=== PATIENT | male | born 1950 | race Caucasian/White ===

== ENCOUNTER → 2018-04-14 07:30 | Outpatient (CLI) | payer MEDICARE, OTHER, SELFPAY ==
[2018-04-14 08:26] LABS: Microalbumin:Creatinine Ratio 7.7 mg/g CRE (<30 mg/g CRE)
[2018-04-14 08:40] LABS: ALB/GLOB Ratio 1.1 RATIO (0.9-2.4); AST(SGOT) 33 U/L (15-37); Alanine Aminotransfer ALT/SGPT 57 U/L (16-61); Albumin, Serum 4.3 g/dL (3.2-5.0); Alkaline Phosphatase 72 U/L (45-117); Anion Gap 7 (5-15); BUN 27 mg/dL (7-18); BUN/Creat Ratio 23.1 RATIO (10-20); Calcium,Total 9.1 mg/dL (8.5-10.1); Chloride 108 mmol/L (98-107); Cholesterol 191 mg/dL (200); Creatinine, Serum 1.17 mg/dL (0.70-1.30); EST Glomerular Filtration Rate 66 mL/min (>60); Est Glom Filt Rate - Afr Amer 80 mL/min (>60); Globulin 3.8 g/dL (2.2-4.2); Glucose 96 mg/dL (74-106); High Density Lipoprotein 30 mg/dL; Potassium 3.9 mmol/L (3.5-5.1); Protein, Total 8.1 g/dL (6.4-8.2); Sodium Level 139 mmol/L (136-145); Thyroid Stim Hormone (TSH) 0.34 uIU/mL (0.358-3.74); Triglycerides 200 mg/dL; Very Low Density Lipoprotein 40 mg/dL (5-40)
[2018-04-16 09:29] LABS: Vitamin D,25 Hydroxy 32.6 ng/mL (29.95-100.01)
== END ==
PROVIDERS: Family Provider Family Medicine; PCP Family Medicine; Visit Provider Family Medicine
DX: I12.9 Hypertensive chronic kidney disease with stage 1 through stage 4 chronic kidney disease, or unspecified chronic kidney disease (principal); N18.2 Chronic kidney disease, stage 2 (mild); E78.00 Pure hypercholesterolemia, unspecified
CPT/HCPCS: 36415; 80053; 80061; 82043; 82306; 82570; 84443; 84550

== ENCOUNTER → 2018-09-07 12:01 | Outpatient (CLI) | payer MEDICARE, OTHER, SELFPAY ==
[2018-09-07 12:05] LABS: Bacteria 0 SEEN /hpf (None Seen); Mucous, Urine 0 SEEN /hpf (<or=2+); Red Blood Cells-Urine 0 SEEN /hpf (0-5); Squamous Epithelial Cells - UA 0 SEEN /hpf (0-5); White Blood Cells 0 SEEN /hpf (0-5)
[2018-09-07 13:31] LABS: Absolute Lymphocyte Count 2.02 X10^3/ul (0.83-4.51); Absolute Neutrophil Count 3.4 X10^3/uL (2.0-7.7); Basophil# 0.01 X10^3/uL; Basophil% 0.2 % (0-1); Eosinophils% 1.6 % (0-5); Hematocrit 43.2 % (40-54); Hemoglobin 14.5 g/dl (13.0-16.5); Lymphocyte # 2.02 X10^3/ul (4.0); Lymphocyte % 32.4 % (19-41); Mean Corp Hgb Conc 33.6 g/gl (32-36); Mean Corpuscular Hgb 30.4 pg (27.0-32.0); Mean Corpuscular Volume 90.6 fL (80-94); Mean Platelet Vol. 12.6 fl (6.2-12.0); Monocyte# 0.71 X10^3/uL; Monocyte% 11.4 % (0-10); Neutrophil # 3.39 X10^3/uL (2.7-7.7); Neutrophil % 54.4 % (47-70); Platelet Count 176 K/mm3 (150-450); RBC Distribution Width CV 12.6 % (11.6-14.6); RBC Distribution Width SD 41.5 fl (35.1-43.9); Red Blood Count 4.77 M/mm3 (4.6-6.2); White Blood Count 6.2 K/mm3 (4.4-11.0)
[2018-09-07 13:35] LABS: POSITIVE COUNT NO; POSITIVE DIFFERENTIAL NO; POSITIVE MORPHOLOGY NO
[2018-09-07 13:47] LABS: Color, Urine Yellow (Yellow); Glucose, Dipstick Normal (Normal); Ketone-Dipstick Negative (Negative); Leukocyte Esterase-Dipstick Negative /ul (Negative); Nitrite-Dipstick Negative (Negative); Occult Blood-Urine Negative /ul (Negative); Protein-Dipstick Negative (Negative); Specific Gravity, Urine 1.015 (1.002-1.030); Urine Bilirubin Dipstick Negative (Negative); Urine Clarity Clear (Clear); Urine Urobilinogen Normal (Normal); Urine pH 6.5 (5.0 - 8.0)
[2018-09-07 14:28] LABS: ALB/GLOB Ratio 1.4 RATIO (0.9-2.4); AST(SGOT) 38 U/L (15-37); Alanine Aminotransfer ALT/SGPT 62 U/L (16-61); Albumin, Serum 4.3 g/dL (3.2-5.0); Alkaline Phosphatase 77 U/L (45-117); Anion Gap 11 (5-15); BUN 23 mg/dL (7-18); CRP < 2.90 mg/L (0.0-3.0); Calcium,Total 9.4 mg/dL (8.5-10.1); Chloride 106 mmol/L (98-107); EST Glomerular Filtration Rate 79 mL/min (>60); Est Glom Filt Rate - Afr Amer 95 mL/min (>60); Glucose 84 mg/dL (74-106); Potassium 3.8 mmol/L (3.5-5.1); Protein, Total 7.3 g/dL (6.4-8.2); Sodium Level 142 mmol/L (136-145)
--- OUTSIDE RECORDS SUMMARY | 2018-10-24 06:43 | XMS RPT_ITS ---
:1950 Author Organization [facility] Care Team Providers Name Role Phone Grant Taylor Attending Unavailable Brandon, Grant Primary Care Unavailable Grant Taylor Attending Unavailable Grant Taylor Referring Unavailable Brandon Grant Primary Care Unavailable PROBLEMS PROBLEMS DATE TYPE CONDITION / CODE ATTENDING STATUS SOURCE 09/07/2018 Unknown R10.31 - Right Jayden Tayloric Active [facility] lower quadrant Community pain / Hospital R10.31(ICD-10) Repository 09/07/2018 Unknown M54.9 - Taylor, Grant Active [facility] Dorsalgia, Community unspecified / Hospital M54.9(ICD-10) Repository PROCEDURES PROCEDURES No Procedure Records FoundRESULTS RESULTS CBC W/DIFF, AUTOMATED Collected: 09/07/2018 Status: F Source: [place] 12:03 PM [facility] REPOSITORY TYPE CODE TESTS RESULT OUT OF RANGE REFERENCE UNITS LAB L100.1000 4.4-11.0 K/mm3 Normal WBC 6.2 LAB L100.1200 4.6-6.2 M/mm3 Normal RBC 4.77 LAB L100.1300 13.0-16.5 g/dl Normal HGB 14.5 LAB L100.1400 40-54 % Normal HCT 43.2 LAB L100.1500 80-94 fL Normal MCV 90.6 LAB L100.1600 27.0-32.0 pg Normal MCH 30.4 LAB L100.1700 32-36 g/gl Normal MCHC 33.6 LAB L100.1810 11.6-14.6 % Normal RDW CV 12.6 LAB L100.1820 35.1-43.9 fl Normal RDW SD 41.5 LAB L100.1900 150-450 K/mm3 Normal PLT 176 LAB L100.2000 6.2-12.0 fl High MPV 12.6 LAB L100.2100 47-70 % Normal NEUT% 54.4 LAB L100.2200 19-41 % Normal LY% 32.4 LAB L100.2300 0-10 % High MONO% 11.4 LAB L100.2400 0-5 % Normal EO% 1.6 LAB L100.2500 0-1 % Normal BASO% 0.2 LAB L100.2550 0.0-0.9 % Normal IM GRAN % 0.000 Result Comment: IG% - Immature Granulocytes (promyelocytes, myelocytes and metamyelocytes) > 1% indicates that a LEFT SHIFT is Present. LAB L100.2620 2.0-7.7 X10 3/uL Normal Absolute Neut 3.4 LAB L100.2720 0.83-4.51 X10 3/ul Normal Absolute Lymph 2.02 Performed By: #### L100.0100 #### [facility] [address] [place], [place], [address] URINALYSIS, COMPLETE Collected: 09/07/2018 Status: F Source: [place] 12:03 PM [facility] REPOSITORY Order Comment: How was Urine Obtained? CLEAN CATCH TYPE CODE TESTS RESULT OUT OF RANGE REFERENCE UNITS LAB L400.3000 Yellow COLOR Normal Yellow LAB L400.3050 Clear Normal CLARITY Clear LAB L400.3200 Normal mg/dl Normal GLUCOSE, UR Normal LAB L400.3300 Negative mg/dL Normal BILIRUBIN URINE Negative LAB L400.3400 Negative mg/dl Normal KETONE UR Negative LAB L400.3465 1.002-1.030 Normal SP.GR. DIPSTX 1.015 LAB L400.3550 5.0 - 8.0 pH UR Normal 6.5 LAB L400.3600 Negative mg/dl PROT Normal DIPSTX Negative LAB L400.3700 Normal mg/dl Normal UROBILI Normal LAB L400.3750 Negative Normal NITRITE UR Negative LAB L400.3780 Negative /ul Normal OCCULT BLOOD-UR Negative LAB L400.3800 Negative /ul LEUK Normal ESTERASE Negative LAB L400.4050 0-5 /hpf WBC 0 Normal SEEN LAB L400.4100 0-5 /hpf 0 Normal RBC-UA SEEN LAB L400.4150 0-5 /hpf SQUAM 0 Normal EPI SEEN LAB L400.4300 None Seen /hpf 0 Normal BACTERIA SEEN LAB L400.4350 <or=2+ /hpf 0 Normal MUCUS, URINE SEEN Performed By: #### L400.0001 #### [facility] [address] [place], [address] COMPREHENSIVE METABOLIC Collected: 09/07/2018 Status: F Source: [facility] 12:03 PM [facility] REPOSITORY TYPE CODE TESTS RESULT OUT OF RANGE REFERENCE UNITS LAB L501.0100 74-106 mg/dL Normal GLU 84 Result Comment: Please note revised GLUCOSE reference range effective 2017. LAB L501.1000 7-18 mg/dL High BUN 23 LAB L501.1100 0.70-1.30 mg/dL Normal CREAT,SERUM 1.00 Result Comment: The validity of the calculated GFR AND GFRAA in patients over 70 years has not been determined. Clinical correlation is essential. LAB L501.1110 >60 mL/min Normal EST GFR 79 Result Comment: Non- GFR Calc LAB L501.1115 >60 mL/min Normal EST GFR - AA 95 Result Comment: GFR Calc LAB L501.1300 10-20 RATIO High BUN/CRE 23.0 LAB L501.1500 6.4-8.2 g/dL T Normal PROT 7.3 LAB L501.1800 3.2-5.0 g/dL Normal ALB 4.3 LAB L501.1950 2.2-4.2 g/dL Normal GLOB 3.0 LAB L501.2000 0.9-2.4 RATIO Normal A/G 1.4 LAB L501.2200 8.5-10.1 mg/dL CA Normal 9.4 LAB L501.4100 15-37 U/L High AST 38 LAB L501.4305 45-117 U/L Normal ALK P 77 LAB L501.4405 16-61 U/L High ALT 62 LAB L501.4600 0.20-1.00 mg/dL T Normal BILI 0.60 LAB L501.5300 136-145 mmol/L NA Normal 142 LAB L501.5600 3.5-5.1 mmol/L K Normal 3.8 LAB L501.5900 98-107 mmol/L CL Normal 106 LAB L501.6100 21.0-32.0 mmol/L Normal CO2 25.0 LAB L501.6200 5-15 Normal GAP 11 Performed By: #### L500.4050, L501.6710 #### [facility] [address] [place], [address] CRP Collected: 09/07/2018 Status: F Source: [place] 12:03 PM [facility] REPOSITORY TYPE CODE TESTS RESULT OUT OF RANGE REFERENCE UNITS LAB L501.6710 0.0-3.0 mg/L Normal < 2.90 C-REACTIVE PROT Result Comment: C-Reactive Protein (CRP) provides useful information for the diagnosis, therapy and monitoring of inflammatory processes and associated diseases. For the evaluation of Relative Risk for Cardiovascular Disease, a High Sensitivity CRP (HSCRP) should be ordered. Performed By: #### L500.4050, L501.6710 #### [facility] [address] [place], [place], [address] MICROALB:CREAT Collected: 04/14/2018 Status: F Source: [place] RATIO,RANDOM UR 7:37 AM [facility] REPOSITORY TYPE CODE TESTS RESULT OUT OF RANGE REFERENCE UNITS LAB L501.1200 NO RANGE EST. mg/dL Normal UR CREAT 77.10 LAB L502.0500 NO RANGE EST. mg/L Normal 6.0 MICROALBUMIN ,UR LAB L502.0600 <30 mg/g CRE mg/g CRE Normal 7.7 MALB:CREAT Performed By: #### L502.0250 #### [facility] [address] [place], [address] COMPREHENSIVE METABOLIC Collected: 04/14/2018 Status: F Source: [place]IL 7:37 AM [facility] REPOSITORY TYPE CODE TESTS RESULT OUT OF RANGE REFERENCE UNITS LAB L501.0100 74-106 mg/dL Normal GLU 96 Result Comment: Please note revised GLUCOSE reference range effective 2017. LAB L501.1000 7-18 mg/dL High BUN 27 LAB L501.1100 0.70-1.30 mg/dL Normal CREAT,SERUM 1.17 Result Comment: The validity of the calculated GFR AND GFRAA in patients over 70 years has not been determined. Clinical correlation is essential. LAB L501.1110 >60 mL/min Normal EST GFR 66 Result Comment: Non- GFR Calc LAB L501.1115 >60 mL/min Normal EST GFR - AA 80 Result Comment: GFR Calc LAB L501.1300 10-20 RATIO High BUN/CRE 23.1 LAB L501.1500 6.4-8.2 g/dL T Normal PROT 8.1 LAB L501.1800 3.2-5.0 g/dL Normal ALB 4.3 LAB L501.1950 2.2-4.2 g/dL Normal GLOB 3.8 LAB L501.2000 0.9-2.4 RATIO Normal A/G 1.1 LAB L501.2200 8.5-10.1 mg/dL CA Normal 9.1 LAB L501.4100 15-37 U/L Normal AST 33 LAB L501.4305 45-117 U/L Normal ALK P 72 LAB L501.4405 16-61 U/L Normal ALT 57 LAB L501.4600 0.20-1.00 mg/dL T Normal BILI 0.70 LAB L501.5300 136-145 mmol/L NA Normal 139 LAB L501.5600 3.5-5.1 mmol/L K Normal 3.9 LAB L501.5900 98-107 mmol/L High CL 108 LAB L501.6100 21.0-32.0 mmol/L Normal CO2 24.0 LAB L501.6200 5-15 Normal GAP 7 Performed By: #### L500.4050, L500.4100, L501.1400, L501.9520 #### [facility] [address] [place], [place], [id number] LIPID PROFILE Collected: 04/14/2018 Status: F Source: [place] 7:37 AM [facility] REPOSITORY TYPE CODE TESTS RESULT OUT OF RANGE REFERENCE UNITS LAB L501.4900 200 mg/dL Normal CHOL 191 Result Comment: <200 mg/dL Desirable 200-240 mg/dL Borderline >240 mg/dL High Risk LAB L501.5000 mg/dL High TRIG 200 Result Comment: The drugs N-Acetylcysteine and Metamizole may falsely depress this assay. Serum Triglycerides Reference Interval Normal <150 mg/dL Borderline high 150 - 199 mg/dL High 200 - 499 mg/dL Very High > or = 500 mg/dL LAB L501.6400 mg/dL Low HDL 30 Result Comment: The drugs N-Acetylcysteine and Metamizole may falsely depress this assay. Reference Range HDL <40 mg/dL Low HDL Cholesterol HDL >or= 60 mg/dL High HDL Cholesterol LAB L501.6500 0-130 mg/dL Normal LDL 121 LAB L501.6600 5-40 mg/dL Normal VLDL 40 Performed By: #### L500.4050, L500.4100, L501.1400, L501.9520 #### [facility] [address] [place], [place], [id number] URIC ACID Collected: 04/14/2018 Status: F Source: [place] 7:37 AM [facility] REPOSITORY TYPE CODE TESTS RESULT OUT OF RANGE REFERENCE UNITS LAB L501.1400 3.5-7.2 mg/dL Normal URIC 7.0 Result Comment: The drugs N-Acetylcysteine and Metamizole may falsely depress this assay. Performed By: #### L500.4050, L500.4100, L501.1400, L501.9520 #### [facility] [address] [place], [place], [id number] THYROID STIM HORMONE Collected: 04/14/2018 Status: F Source: [place] (TSH) 7:37 AM [facility] REPOSITORY TYPE CODE TESTS RESULT OUT OF RANGE REFERENCE UNITS LAB L501.9520 0.358-3.74 uIU/mL Low TSH 0.34 Performed By: #### L500.4050, L500.4100, L501.1400, L501.9520 #### [facility] [address] [place], [address] VITAMIN D,25 HYDROXY Collected: 04/14/2018 Status: F Source: [place] 7:37 AM [facility] REPOSITORY TYPE CODE TESTS RESULT OUT OF RANGE REFERENCE UNITS LAB L506.1000 29.95-100.01 ng/mL Normal Vitamin D 32.6 25-OH Result Comment: Vitamin D 25(OH) Status Range Deficiency <20 ng/mL (50nmol/L) Insuffciency 20 - 30 ng/mL (50 - 75 nmol/L) Sufficiency 30 - 100 ng/mL (75 - 250 nmol/L) Toxicity >100 ng/mL (>250 nmol/L) Performed By: #### L506.1000 #### [facility] [place], [address] ALLERGIES ALLERGIES No Allergies Records FoundENCOUNTERS ENCOUNTERS ADMIT/DISCHARGE ACCOUNT ADMITTING ENCOUNTER LOCATION SOURCE NUMBER CLASS 09/07/2018 [id number] Ambulatory [facility] 4 [facility] ing:MFPLAB Repository 04/14/2018 [id number] Ambulatory [facility] 0 [facility] ing:LAB Repository PAYERS PAYERS ENCOUNTER GUARANTOR PAYER SUBSCRIBER SOURCE 09/07/2018 ROCKY A Primary ROCKY A [place] [id number] Insurance:MEDIC[facility] A [facility] [id number] Number: Repository [id number]: [phone] [id number] [phone] () Date:2018-09-07 09/07/2018 Secondary ROCKY A [place] [facility] Number: [id number] Hospital [id number] Repository Date:4987-02-82[address], [place] [address]ZN: 09/07/2018 Tertiary ROCKY A [place] Insurance[facility] [id number] [id number] Hospital Number: Repository [id number] Date:3524-26-47[address], [place] [address]JR: 09/07/2018 Tertiary NOT GIVENUNK [place] Insurance:SELF PAY Community [facility] Number: Effective Repository Date:2018-09-07 04/14/2018 Rocky A Primary Rocky A [place] [id number] Insurance:MEDICARE EikleberryDOB: [facility] PART A [facility] [id number] Number: Repository [id number]: [phone] [id number] [phone] () Date:2018-04-14 04/14/2018 Secondary Rocky A [place] [facility] Community Number: [id number] Hospital [id number] Repository Date:1420-46-76[address], [place] [address]QT: 04/14/2018 Tertiary Rocky A [place] [facility] [address]Uhegen [id number] Hospital Number: Repository [id number] Date:4949-14-03FW [address], [place] [address]EQ: 04/14/2018 Tertiary NOT GIVENUNK [place] Insurance:SELF PAY [facility] Number: Effective Repository Date:2018-04-14
== END ==
PROVIDERS: Family Provider Family Medicine; PCP Family Medicine; Visit Provider Family Medicine
DX: R10.31 Right lower quadrant pain (principal); M54.9 Dorsalgia, unspecified
CPT/HCPCS: 36415; 80053; 81001; 85025; 86140

== ENCOUNTER → 2018-11-20 06:45 | Outpatient (CLI) | payer MEDICARE, OTHER, SELFPAY ==
[2018-11-20 07:59] LABS: Microalbumin:Creatinine Ratio 96.5 mg/g CRE (<30 mg/g CRE)
[2018-11-20 08:23] LABS: ALB/GLOB Ratio 1.2 RATIO (0.9-2.4); AST(SGOT) 38 U/L (15-37); Alanine Aminotransfer ALT/SGPT 53 U/L (16-61); Albumin, Serum 4.2 g/dL (3.2-5.0); Alkaline Phosphatase 89 U/L (45-117); Anion Gap 7 (5-15); BUN 16 mg/dL (7-18); BUN/Creat Ratio 17.1 RATIO (10-20); Chloride 105 mmol/L (98-107); Cholesterol 157 mg/dL (200); Creatinine, Serum 0.94 mg/dL (0.70-1.30); EST Glomerular Filtration Rate 85 mL/min (>60); Est Glom Filt Rate - Afr Amer 103 mL/min (>60); Globulin 3.6 g/dL (2.2-4.2); Glucose 104 mg/dL (74-106); High Density Lipoprotein 32 mg/dL; Protein, Total 7.8 g/dL (6.4-8.2); Sodium Level 138 mmol/L (136-145); Thyroid Stim Hormone (TSH) 0.69 uIU/mL (0.358-3.74); Triglycerides 204 mg/dL; Very Low Density Lipoprotein 41 mg/dL (5-40)
[2018-11-20 11:21] LABS: Vitamin D,25 Hydroxy 28.8 ng/mL (29.95-100.01)
== END ==
PROVIDERS: Family Provider Family Medicine; PCP Family Medicine; Referring Provider Family Medicine; Visit Provider Family Medicine
DX: I12.9 Hypertensive chronic kidney disease with stage 1 through stage 4 chronic kidney disease, or unspecified chronic kidney disease (principal); N18.2 Chronic kidney disease, stage 2 (mild)
CPT/HCPCS: 36415; 80053; 80061; 82043; 82306; 82570; 84443

== ENCOUNTER 2019-03-15 15:11 | Emergency (ER) | payer MEDICARE, OTHER, SELFPAY ==
[2019-03-15 15:12] VITALS: BP 164/90; PULSE 95; RESP 16; TEMP 36.8; O2SAT 95; BMI 32.1
--- NOTE | 2019-03-15 16:30 | RAD_ITS ---
STUDY: X-RAY - RIGHT ELBOW REASON FOR EXAM: Male, 68 years old. Trauma TECHNIQUE: 3 view(s) of the elbow. COMPARISON: None. FINDINGS: Normal visualized humerus, radius and ulna. Normal radiocapitellar and ulnotrochlear articulations. Prominent olecranon spur is noted The soft tissue structures are unremarkable. RAD/Elbow min 3 Views IMPRESSION: Prominent olecranon spur. No evidence for acute fracture. Electronically Signed: Sean Babin MD at 16:49 EDT , Service support ,
--- NOTE | 2019-03-15 16:31 | ED.VISSUMM ---
- ER Visit Summary Date of Service: 03/15/19 Chief Complaint: Right arm pain and swelling History of Present Illness: The patient is a 68 M who presents for right arm pain and swelling after lifting a heavy object today. It occurred 3 hours prior to presentation. Patient was using his right arm to hold the lower end of a heavy object while he lifted. He felt a tearing movement in his elbow region and then had pain and weakness. He now has fullness in the upper arm and swelling in the proximal forearm and elbow region. He is right-handed. He does not have any pain if he holds still. Denies any other injuries. Patient called Dr. Jorden Major's office prior to coming to the emergency department and made an appointment for next Monday. He is not on any blood thinners. Physical Examination: Patient is well-nourished well-developed sitting in bed in no distress. Examination of the upper extremities shows asymmetry to the biceps region when flexed. Patient has fullness in the proximal right upper arm and lack of bicep musculature in the mid and distal arm. Patient has mild swelling in the inferior antecubital region and tenderness to palpation of this area. The hook test shows no palpable bicep tendon. Squeezing the bicep does not result in any supination or flexion of the forearm. Radial pulse 2+ and symmetric. Distal sensation and motor function intact. Test Results: [] Emergency Department Course and Treatment: Patient's presentation is consistent with a distal biceps rupture. Patient already has an appointment for orthopedic evaluation next Monday. He was discussed with Dr. Jorden Major who states this appointment is an appropriate timeframe for follow-up. Patient will be given a sling to wear for comfort. He will ice the bicep. An x-ray was performed to look for any possible bony avulsion. Patient discharged home well-appearing and in no distress. Treatment Plan: [] Disposition: [] Impression: Distal biceps tendon rupture This note was generated with [employer] dictation software. It may contain incorrect words, spelling, and punctuation that were not noted in review of the chart prior to signing ED Disposition - Plan for ED Patient: Disposition: Home or Assisted Living Instructions: Tendonitis Referrals: Grant Taylor MD [Primary Care Provider] - Jorden Major MD [STAFF PHYSICIAN] - Keep Ashli appointment Additional Instructions: YOU HAVE A TENDON RUPTURE OF YOUR LOWER RIGHT BICEP. Please use the sling as needed for comfort or to remind you not to do any heavy lifting with the hand. Do not lift more than 5 pounds with your right hand. Take the sling off several times a day to remove your arms through range of motion exercises. Ice your arm 3-4 times a day for 15 to 20 minutes each time. Use [id number] pain medication as needed. Follow-up with Dr. Major next Monday as previously scheduled. If you have any worsening of your condition or any new concerning symptoms, please return immediately to the emergency department for another evaluation.
== END 2019-03-15 17:15 | disposition home or self-care (01) ==
PROVIDERS: Emergency Provider Emergency Medicine; Family Provider Family Medicine; PCP Family Medicine
DX: S46.211A Strain of muscle, fascia and tendon of other parts of biceps, right arm, initial encounter (principal); X50.0XXA Overexertion from strenuous movement or load, initial encounter; Y93.89 Activity, other specified; Y92.89 Other specified places as the place of occurrence of the external cause; Y99.8 Other external cause status
CPT/HCPCS: 73080; 99283

== ENCOUNTER → 2019-06-01 | Outpatient (CLI) | payer MEDICARE, OTHER, SELFPAY ==
[2019-06-01 11:32] LABS: Absolute Lymphocyte Count 2.31 X10^3/uL (0.83-4.51); Absolute Neutrophil Count 2.8 X10^3/uL (2.0-7.7); Basophil# 0.03 X10^3/uL; Basophil% 0.5 % (0-1); Eosinophil# 0.09 X10^3/uL; Eosinophils% 1.5 % (0-5); Hematocrit 46.3 % (40-54); Hemoglobin 15.5 g/dL (13.0-16.5); Lymphocyte # 2.31 X10^3/ul (4.0); Lymphocyte % 38.6 % (19-41); Mean Corp Hgb Conc 33.5 g/dL (32-36); Mean Corpuscular Hgb 30.3 pg (27.0-32.0); Mean Corpuscular Volume 90.4 fL (80-94); Mean Platelet Vol. 12.6 fl (6.2-12.0); Monocyte# 0.72 X10^3/uL; NRBC Flagged by Analyzer 0 % (0-5); Neutrophil # 2.82 X10^3/uL (2.7-7.7); Neutrophil % 47.1 % (47-70); Platelet Count 181 K/mm3 (150-450); RBC Distribution Width CV 12.4 % (11.6-14.6); RBC Distribution Width SD 40.7 fl (35.1-43.9); Red Blood Count 5.12 M/mm3 (4.6-6.2)
[2019-06-01 11:50] LABS: Microalbumin,Random Urine 24.7 mg/L (NO RANGE EST.); Microalbumin:Creatinine Ratio 36.6 mg/g CRE (<30 mg/g CRE)
[2019-06-01 12:08] LABS: Anion Gap 10 (5-15); BUN 40 mg/dL (7-18); BUN/Creat Ratio 34.2 RATIO (10-20); Calcium,Total 9.2 mg/dL (8.5-10.1); Chloride 106 mmol/L (98-107); Creatinine, Serum 1.17 mg/dL (0.70-1.30); EST Glomerular Filtration Rate 66 mL/min (>60); Est Glom Filt Rate - Afr Amer 79 mL/min (>60); Glucose 95 mg/dL (74-106); Potassium 3.6 mmol/L (3.5-5.1); Sodium Level 140 mmol/L (136-145)
== END | disposition home or self-care (01) ==
LOC: LAB 10:36
PROVIDERS: Family Provider Family Medicine; PCP Family Medicine; Referring Provider Family Medicine; Visit Provider Family Medicine
DX: I12.9 Hypertensive chronic kidney disease with stage 1 through stage 4 chronic kidney disease, or unspecified chronic kidney disease (principal); N18.2 Chronic kidney disease, stage 2 (mild)
CPT/HCPCS: 36415; 80048; 82043; 82570; 85025

== ENCOUNTER → 2020-12-16 05:58 | Outpatient (CLI) | payer MEDICARE, OTHER, SELFPAY ==
[2020-12-16 06:43] LABS: Hematocrit 43.9 % (40-54); Hemoglobin 14.8 g/dL (13.0-16.5); Mean Corp Hgb Conc 33.7 g/dL (32-36); Mean Corpuscular Volume 91.8 fL (80-94); Mean Platelet Vol. 12.1 fl (6.2-12.0); Platelet Count 158 K/mm3 (150-450); RBC Distribution Width CV 12.3 % (11.6-14.6); RBC Distribution Width SD 41.8 fl (35.1-43.9); Red Blood Count 4.78 M/mm3 (4.6-6.2); White Blood Count 7.7 K/mm3 (4.4-11.0)
[2020-12-16 07:15] LABS: ALB/GLOB Ratio 1.2 RATIO (0.9-2.4); AST(SGOT) 39 U/L (15-37); Alanine Aminotransfer ALT/SGPT 79 U/L (16-61); Albumin, Serum 4.3 g/dL (3.2-5.0); Alkaline Phosphatase 85 U/L (45-117); Anion Gap 7 (5-15); BUN 32 mg/dL (7-18); BUN/Creat Ratio 28.3 RATIO (10-20); Calcium,Total 9.4 mg/dL (8.5-10.1); Chloride 106 mmol/L (98-107); Cholesterol 207 mg/dL (200); Creatinine, Serum 1.13 mg/dL (0.70-1.30); EST Glomerular Filtration Rate 68 mL/min (>60); Est Glom Filt Rate - Afr Amer 82 mL/min (>60); Globulin 3.6 g/dL (2.2-4.2); Glucose 106 mg/dL (74-106); High Density Lipoprotein 30 mg/dL; Potassium 3.9 mmol/L (3.5-5.1); Protein, Total 7.9 g/dL (6.4-8.2); Sodium Level 138 mmol/L (136-145); Triglycerides 280 mg/dL; Very Low Density Lipoprotein 56 mg/dL (5-40)
[2020-12-16 08:05] LABS: Hemoglobin A1c 5.4 % (3.8-5.6)
[2020-12-16 08:09] LABS: Microalbumin,Random Urine 47.7 mg/L (NO RANGE EST.); Microalbumin:Creatinine Ratio 53.7 mg/g CRE (<30 mg/g CRE)
== END ==
PROVIDERS: PCP Family Medicine; Referring Provider Family Medicine; Visit Provider Family Medicine
DX: I10 Essential (primary) hypertension (principal); E78.2 Mixed hyperlipidemia
CPT/HCPCS: 36415; 80053; 80061; 82043; 82570; 83036; 85027

== ENCOUNTER → 2020-12-24 09:42 | Outpatient (CLI) | payer MEDICARE, OTHER, SELFPAY ==
[2020-12-24 13:17] LABS: Hepatitis C Antibody Non-Reactive (Nonreactive)
== END ==
PROVIDERS: PCP Family Medicine; Referring Provider Family Medicine; Visit Provider Family Medicine
DX: R79.89 Other specified abnormal findings of blood chemistry (principal)
CPT/HCPCS: 36415; 86803

== ENCOUNTER 2021-12-14 16:44 | Outpatient (CLI) | payer MEDICARE, OTHER, SELFPAY ==
[2021-12-14 17:38] LABS: Absolute Lymphocyte Count 2.62 X10^3/uL (0.83-4.51); Absolute Neutrophil Count 3.9 X10^3/uL (2.0-7.7); Basophil# 0.03 X10^3/uL; Basophil% 0.4 % (0-1); Eosinophils% 1.4 % (0-5); Hematocrit 41.3 % (40-54); Hemoglobin 14.3 g/dL (13.0-16.5); Lymphocyte # 2.62 X10^3/ul (0.83-4.51); Lymphocyte % 35.5 % (19-41); Mean Corp Hgb Conc 34.6 g/dL (32-36); Mean Corpuscular Hgb 31.3 pg (27.0-32.0); Mean Corpuscular Volume 90.4 fL (80-94); Mean Platelet Vol. 12.9 fl (6.2-12.0); Monocyte# 0.75 X10^3/uL; Monocyte% 10.2 % (0-10); NRBC Flagged by Analyzer 0 % (0-5); Neutrophil # 3.86 X10^3/uL (2.7-7.7); Neutrophil % 52.2 % (47-70); Platelet Count 191 K/mm3 (150-450); RBC Distribution Width CV 12.5 % (11.6-14.6); RBC Distribution Width SD 41.2 fl (35.1-43.9); Red Blood Count 4.57 M/mm3 (4.6-6.2); White Blood Count 7.4 K/mm3 (4.4-11.0)
[2021-12-14 18:06] LABS: ALB/GLOB Ratio 1.2 RATIO (0.9-2.4); AST(SGOT) 49 U/L (15-37); Alanine Aminotransfer ALT/SGPT 82 U/L (16-61); Albumin, Serum 4.5 g/dL (3.2-5.0); Alkaline Phosphatase 70 U/L (45-117); Anion Gap 7 (5-15); BUN 31 mg/dL (7-18); BUN/Creat Ratio 25.6 RATIO (10-20); Calcium,Total 9.6 mg/dL (8.5-10.1); Chloride 105 mmol/L (98-107); Creatinine, Serum 1.21 mg/dL (0.70-1.30); EST Glomerular Filtration Rate 63 mL/min (>60); Est Glom Filt Rate - Afr Amer 76 mL/min (>60); Globulin 3.7 g/dL (2.2-4.2); Glucose 88 mg/dL (74-106); Potassium 3.6 mmol/L (3.5-5.1); Protein, Total 8.2 g/dL (6.4-8.2); Sodium Level 138 mmol/L (136-145)
[2021-12-14 18:13] LABS: Microalbumin,Random Urine 38.8 mg/L (NO RANGE EST.); Microalbumin:Creatinine Ratio 34.6 mg/g CRE (<30 mg/g CRE)
[2021-12-14 18:26] LABS: Hemoglobin A1c 5.5 % (3.8-5.6)
== END 2021-12-14 23:59 | disposition home or self-care (01) ==
LOC: MFPLAB 16:50
PROVIDERS: PCP Family Medicine; Referring Provider Family Medicine; Visit Provider Family Medicine
DX: E88.81 Metabolic syndrome and other insulin resistance (principal); R79.89 Other specified abnormal findings of blood chemistry; I10 Essential (primary) hypertension
CPT/HCPCS: 36415; 80053; 82043; 82570; 83036; 85025

== ENCOUNTER 2022-08-30 07:05 | Outpatient (CLI) | payer MEDICARE, OTHER, SELFPAY ==
[2022-08-30 10:02] LABS: Absolute Lymphocyte Count 2.14 X10^3/uL (0.83-4.51); Absolute Neutrophil Count 3.3 X10^3/uL (2.0-7.7); Basophil# 0.03 X10^3/uL; Basophil% 0.5 % (0-1); Eosinophil# 0.15 X10^3/uL; Eosinophils% 2.4 % (0-5); Hematocrit 42.9 % (40-54); Hemoglobin 14.2 g/dL (13.0-16.5); Lymphocyte # 2.14 X10^3/ul (0.83-4.51); Lymphocyte % 33.5 % (19-41); Mean Corp Hgb Conc 33.1 g/dL (32-36); Mean Corpuscular Hgb 30.2 pg (27.0-32.0); Mean Corpuscular Volume 91.3 fL (80-94); Mean Platelet Vol. 12.7 fl (6.2-12.0); NRBC Flagged by Analyzer 0 % (0-5); Neutrophil # 3.34 X10^3/uL (2.7-7.7); Neutrophil % 52.3 % (47-70); Platelet Count 194 K/mm3 (150-450); RBC Distribution Width CV 12.4 % (11.6-14.6); RBC Distribution Width SD 41.1 fl (35.1-43.9); White Blood Count 6.4 K/mm3 (4.4-11.0)
[2022-08-30 10:20] LABS: ALB/GLOB Ratio 1.4 RATIO (0.9-2.4); AST(SGOT) 31 U/L (15-37); Alanine Aminotransfer ALT/SGPT 61 U/L (16-61); Albumin, Serum 4.1 g/dL (3.2-5.0); Alkaline Phosphatase 74 U/L (45-117); Anion Gap 9 (5-15); BUN 21 mg/dL (7-18); BUN/Creat Ratio 19.4 RATIO (10-20); Calcium,Total 9.5 mg/dL (8.5-10.1); Chloride 104 mmol/L (98-107); Creatinine, Serum 1.08 mg/dL (0.70-1.30); EST Glomerular Filtration Rate 71 mL/min (>60); Est Glom Filt Rate - Afr Amer 86 mL/min (>60); Glucose 107 mg/dL (74-106); Potassium 3.8 mmol/L (3.5-5.1); Protein, Total 7.1 g/dL (6.4-8.2); Sodium Level 140 mmol/L (136-145); Vitamin D,25 Hydroxy 72.7 ng/mL
[2022-08-30 10:24] LABS: Microalbumin,Random Urine 98.7 mg/L (NO RANGE EST.)
== END 2022-08-30 23:59 | disposition home or self-care (01) ==
PROVIDERS: PCP Family Medicine; Referring Provider Family Medicine; Visit Provider Family Medicine
DX: I12.9 Hypertensive chronic kidney disease with stage 1 through stage 4 chronic kidney disease, or unspecified chronic kidney disease (principal); N18.2 Chronic kidney disease, stage 2 (mild); R79.89 Other specified abnormal findings of blood chemistry; E55.9 Vitamin D deficiency, unspecified
CPT/HCPCS: 36415; 80053; 82043; 82306; 82570; 85025

== ENCOUNTER → 2023-06-23 | Outpatient (CLI) | payer MEDICARE, OTHER, SELFPAY ==
--- NOTE | 2023-06-23 15:54 | MRI_ITS ---
MRI brain IAC protocol 14 cc Clariscan. Included sequences are sagittal T1, diffusion, axial T2/flair and axial T1. High-resolution coronal T2, axial 3-D fiesta and axial T1 pre and postcontrast. FINDINGS: The craniocervical junction is within normal limits. Normal developmental midline anatomy. Normal clivus. Normal pituitary gland. No Chiari malformation. Dural venous sinus flow voids are normal. No restricted diffusion is present. There is no infarct. Posterior fossa and brainstem show no acute abnormality. Patient does have some scattered white matter hyperintensities on FLAIR to a mild degree. These are more prominent in the left frontal lobe image 18 series 6 however there is no abnormal enhancement of the brain parenchyma after contrast demonstration. No acute intra or extra-axial fluid collection is present. There is no abnormal enhancement of the IAC. Cranial nerve VII/8 complex within normal limits. Normal cochlear apparatus. Normal semicircular canals. Grossly intact Meckel''s cave region. The patient has some T2 bright T1 isointense areas at the left skull base around the level of C1 image 2 series 6. These areas have a somewhat lobulated appearance. The largest measures approximately 1.5 cm x 1.2 cm. This is also visualized on sagittal T1 image 15/25 series 3. No obvious associated diffusion abnormality. Arterial flow voids at the skull base appear to be grossly intact. MRI/Brain W/WO Contrast IMPRESSION: No obvious etiology identified for the hearing loss. This patient does have some nonspecific white matter hyperintensities on FLAIR which do not enhance. Findings could be related to old insult. Incompletely evaluated soft tissue at the left skull base. Findings could reflect asymmetrically enlarged nodes in the suboccipital region. Consider CT scan with contrast through this area. Temporal bones could be evaluated at that time if not already performed. No obvious IAC abnormality. Electronically Signed: Ezekiel Stevens MD at 18:57 EDT ,
[2023-06-23 16:44] LABS: CREATININE FINGERSTICK 0.9 mg/dL (0.70-1.30); EGFR FINGERSTICK > 60.0000 mL/min (>60)
== END | disposition home or self-care (01) ==
LOC: MRI 15:48
PROVIDERS: PCP Family Medicine; Referring Provider Otolaryngology Otolaryngology/Facial Plastic Surgery; Visit Provider Otolaryngology Otolaryngology/Facial Plastic Surgery
DX: H90.3 Sensorineural hearing loss, bilateral (principal); R27.0 Ataxia, unspecified
CPT/HCPCS: 70553; A9575

== ENCOUNTER → 2023-10-02 | Outpatient (CLI) | payer MEDICARE, OTHER, SELFPAY ==
--- OUTSIDE RECORDS SUMMARY | 2023-10-02 13:11 | XMS RPT_ITS | CCD ---
Author Name Unknown Address [address] [place] [address] Organization [facility] Care Team Providers Care Sandwich Wrapper Name Role Phone CIERRA CONTRERAS DR Admitting Unavailable CIERRA CONTRERAS DR Attending Unavailable CIERRA CONTRERAS DR Primary Care Unavailable JEWELL CRAIG Consulting Unavailable PROVIDER, UNKNOWN Consulting Unavailable Results Test Name Value Interpretation Reference Range Facil ity Encounters Encounter Date Encounter Type Care Provider Facility Start: 03-19-2019 End: 03-19-2019 Patient encounter procedure CIERRA CONTRERAS [facility] Payers Date Payer Category Payer Unknown [id number] Medicare [id number] Unknown [id number] Summary Purpose Family History No Family History Records Found Advance Directives No Advanced Directives Records Found Additional Source Comments (unrecognized sect ion and content) No Status Records Found INFORMATION SOURCE (unrecogn ized section and content) FOR RECORDS PERTAINING TO PATIENTS WHO ARE OR HAVE BEEN ENROLLED IN A CHEMICAL DEPENDENCY/SUBSTANCEABUSE PROGRAM, SOME INFORMATION MAY BE OMITTED. This clinical summary was aggregated from multiple sources. Caution should be exercised in using it in the provision of clinical care. This summary normalizes information from multiple sources, and as a consequence, information in this document may materially change the coding, format and clinical context of patient data. In addition, data may be omitted in some cases. CLINICAL DECISIONS SHOULD BE BASED ON THE PRIMARY CLINICAL RECORDS. [employer] provides no warranty or guarantee of the accuracy or completeness of information in this document.
[2023-10-02 15:37] LABS: Absolute Lymphocyte Count 3.09 X10^3/uL (0.83-4.51); Absolute Neutrophil Count 5.2 X10^3/uL (2.0-7.7); Basophil# 0.03 X10^3/uL; Basophil% 0.3 % (0-1); Eosinophil# 0.14 X10^3/uL; Eosinophils% 1.5 % (0-5); Hematocrit 43.6 % (40-54); Hemoglobin 14.5 g/dL (13.0-16.5); Lymphocyte # 3.09 X10^3/ul (0.83-4.51); Lymphocyte % 32.9 % (19-41); Mean Corp Hgb Conc 33.3 g/dL (32-36); Mean Corpuscular Hgb 30.6 pg (27.0-32.0); Mean Platelet Vol. 12.9 fl (6.2-12.0); Monocyte# 0.88 X10^3/uL; Monocyte% 9.4 % (0-10); NRBC Flagged by Analyzer 0 % (0-5); Neutrophil % 55.5 % (47-70); Platelet Count 193 K/mm3 (150-450); RBC Distribution Width CV 12.3 % (11.6-14.6); RBC Distribution Width SD 41.9 fl (35.1-43.9); Red Blood Count 4.74 M/mm3 (4.6-6.2); White Blood Count 9.4 K/mm3 (4.4-11.0)
[2023-10-02 16:03] LABS: Microalbumin:Creatinine Ratio 260.4 mg/g CRE (<30 mg/g CRE)
[2023-10-02 16:26] LABS: ALB/GLOB Ratio 1.1 RATIO (0.9-2.4); AST(SGOT) 61 U/L (15-37); Alanine Aminotransfer ALT/SGPT 111 U/L (16-61); Alkaline Phosphatase 83 U/L (45-117); Anion Gap 8 (5-15); BUN 20 mg/dL (7-18); BUN/Creat Ratio 19.4 RATIO (10-20); Chloride 107 mmol/L (98-107); Creatinine, Serum 1.03 mg/dL (0.70-1.30); EST Glomerular Filtration Rate 75 mL/min (>60); Est Glom Filt Rate - Afr Amer 91 mL/min (>60); Globulin 3.6 g/dL (2.2-4.2); Glucose 96 mg/dL (74-106); PSA,Total - Annual Screen 2.24 ng/mL (0.00-4.00); Potassium 3.4 mmol/L (3.5-5.1); Protein, Total 7.6 g/dL (6.4-8.2); Sodium Level 140 mmol/L (136-145); Thyroid Stim Hormone (TSH) 0.45 uIU/mL (0.358-3.74)
== END | disposition home or self-care (01) ==
LOC: MTLAB 12:44
PROVIDERS: PCP Family Medicine; Referring Provider Family Medicine; Visit Provider Family Medicine
DX: Z12.5 Encounter for screening for malignant neoplasm of prostate (principal); N18.2 Chronic kidney disease, stage 2 (mild); I12.9 Hypertensive chronic kidney disease with stage 1 through stage 4 chronic kidney disease, or unspecified chronic kidney disease
CPT/HCPCS: 36415; 80053; 82043; 82570; 84153; 84443; 85025; G0103

== ENCOUNTER → 2023-11-20 | Outpatient (CLI) | payer MEDICARE, OTHER, SELFPAY ==
--- NOTE | 2023-11-20 12:54 | RAD_ITS ---
STUDY: X-RAY CHEST REASON FOR EXAM: Male, 73 years old. ACUTE BRONCHITIS TECHNIQUE: PA and lateral views of the chest. COMPARISON: February 16, 2011 FINDINGS: The lungs are clear and expanded. There is no demonstrated pleural abnormality. Normal size heart. Normal mediastinum and luma. Normal visualized pulmonary arteries. Normal visualized aortic arch and descending thoracic aorta. There are diffuse degenerative changes of the visualized thoracic spine. Normal visualized ribs, clavicles, and shoulders. There is no demonstrated abnormality of the visualized soft tissue structures of the upper abdomen. RAD/Chest PA and Lateral IMPRESSION: Degenerative changes, as described above. No demonstrated acute cardiopulmonary process. Electronically Signed: Guille Lee MD at 15:14 EST ,
[2023-11-20 15:34] LABS: Absolute Lymphocyte Count 2.84 X10^3/uL (0.83-4.51); Absolute Neutrophil Count 4.6 X10^3/uL (2.0-7.7); Basophil# 0.05 X10^3/uL; Basophil% 0.6 % (0-1); Eosinophil# 0.21 X10^3/uL; Eosinophils% 2.4 % (0-5); Hematocrit 43.5 % (40-54); Hemoglobin 14.6 g/dL (13.0-16.5); Lymphocyte # 2.84 X10^3/ul (0.83-4.51); Lymphocyte % 32.9 % (19-41); Mean Corp Hgb Conc 33.6 g/dL (32-36); Mean Corpuscular Hgb 30.6 pg (27.0-32.0); Mean Corpuscular Volume 91.2 fL (80-94); Mean Platelet Vol. 12.6 fl (6.2-12.0); Monocyte# 0.89 X10^3/uL; Monocyte% 10.3 % (0-10); NRBC Flagged by Analyzer 0 % (0-5); Neutrophil # 4.62 X10^3/uL (2.7-7.7); Neutrophil % 53.5 % (47-70); Platelet Count 241 K/mm3 (150-450); RBC Distribution Width CV 12.6 % (11.6-14.6); Red Blood Count 4.77 M/mm3 (4.6-6.2); White Blood Count 8.6 K/mm3 (4.4-11.0)
[2023-11-20 16:06] LABS: CRP < 2.90 mg/L (0.0-3.0)
--- OUTSIDE RECORDS SUMMARY | 2023-11-20 21:01 | XMS RPT_ITS | CCD ---
Author Name Unknown Address [address] [place] [address] Organization [facility] Care Team Providers Care Package Designer Name Role Phone CIERRA CONTRERAS DR Admitting Unavailable CIERRA CONTRERAS DR Attending Unavailable CIRERA CONTRERAS DR Primary Care Unavailable JEWELL CRAIG Consulting Unavailable PROVIDER, UNKNOWN Consulting Unavailable Results Test Name Value Interpretation Reference Range Facil ity Encounters Encounter Date Encounter Type Care Provider Facility Start: 03-19-2019 End: 03-19-2019 Patient encounter procedure CIERRA CONTRERAS [facility] Payers Date Payer Category Payer Unknown [id number] Medicare [id number] Unknown [id number] Summary Purpose Family History No Family History [...] BE BASED ON THE PRIMARY CLINICAL RECORDS. [employer] provides no warranty or guarantee of the accuracy or completeness of information in this document.
== END | disposition home or self-care (01) ==
PROVIDERS: PCP Family Medicine; Referring Provider Family Medicine; Visit Provider Family Medicine
DX: J20.9 Acute bronchitis, unspecified (principal)
CPT/HCPCS: 36415; 71046; 85025; 86140

== ENCOUNTER → 2024-01-01 | Outpatient (CLI) | payer MEDICARE, OTHER, SELFPAY ==
--- NOTE | 2024-01-01 16:54 | RAD_ITS ---
EXAM: XR LUMBOSACRAL SPINE, 4 OR 5 VIEWS CLINICAL INDICATION: NEUROGENIC CLAUDICATION TECHNIQUE: Frontal, lateral and bilateral oblique views of the lumbar spine. COMPARISON: No relevant prior studies available. FINDINGS: VERTEBRAE: Anterior spondylosis at multiple levels. Grade 1 roughly 1.2 cm anterolisthesis of L4 with respect to L5. Facet joint hypertrophic changes posteriorly at L2-S1. Mild dextroscoliosis centered at L3. Peripherally calcified round 1.8 cm structure projecting in the expected region of the gallbladder or right kidney or within a diverticulum, at the level of L2. Preserved vertebral body height. No fracture. DISC SPACES: Marked disc space narrowing throughout most of the lower thoracic and lumbar levels, with relative sparing and normal disc height at L5-S1. GASTROINTESTINAL TRACT: Unremarkable as visualized. Included bowel gas pattern is non-obstructive. RAD/L/S Spine Min 4 Views IMPRESSION: 1. Advanced multilevel degenerative changes. Grade 1 L4 anterolisthesis. 2. MRI is suggested to evaluate for canal and neural foraminal stenoses. Electronically Signed: Sharron Cortez MD at 8:05 EDT ,
[2024-01-01 17:36] LABS: Absolute Lymphocyte Count 2.56 X10^3/uL (0.83-4.51); Absolute Neutrophil Count 3.5 X10^3/uL (2.0-7.7); Basophil# 0.04 X10^3/uL; Basophil% 0.6 % (0-1); Eosinophil# 0.19 X10^3/uL; Eosinophils% 2.7 % (0-5); Hematocrit 43.5 % (40-54); Hemoglobin 14.6 g/dL (13.0-16.5); Lymphocyte # 2.56 X10^3/ul (0.83-4.51); Lymphocyte % 36.2 % (19-41); Mean Corp Hgb Conc 33.6 g/dL (32-36); Mean Corpuscular Hgb 30.8 pg (27.0-32.0); Mean Corpuscular Volume 91.8 fL (80-94); Mean Platelet Vol. 12.9 fl (6.2-12.0); Monocyte% 11.3 % (0-10); NRBC Flagged by Analyzer 0 % (0-5); Neutrophil # 3.47 X10^3/uL (2.7-7.7); Neutrophil % 48.9 % (47-70); Platelet Count 218 K/mm3 (150-450); RBC Distribution Width CV 12.6 % (11.6-14.6); RBC Distribution Width SD 42.3 fl (35.1-43.9); Red Blood Count 4.74 M/mm3 (4.6-6.2); White Blood Count 7.1 K/mm3 (4.4-11.0)
[2024-01-01 17:52] LABS: Erythrocyte Sedimentation Rate 11 mm/hr (0-20)
[2024-01-01 18:16] LABS: ALB/GLOB Ratio 1.2 RATIO (0.9-2.4); AST(SGOT) 47 U/L (15-37); Alanine Aminotransfer ALT/SGPT 71 U/L (16-61); Albumin, Serum 4.2 g/dL (3.2-5.0); Alkaline Phosphatase 90 U/L (45-117); Anion Gap 9 (5-15); BUN 24 mg/dL (7-18); BUN/Creat Ratio 23.1 RATIO (10-20); CRP < 2.90 mg/L (0.0-3.0); Calcium,Total 9.8 mg/dL (8.5-10.1); Chloride 108 mmol/L (98-107); Creatinine, Serum 1.04 mg/dL (0.70-1.30); EST Glomerular Filtration Rate 74 mL/min (>60); Est Glom Filt Rate - Afr Amer 90 mL/min (>60); Globulin 3.6 g/dL (2.2-4.2); Glucose 98 mg/dL (74-106); Potassium 3.7 mmol/L (3.5-5.1); Protein, Total 7.8 g/dL (6.4-8.2); Sodium Level 140 mmol/L (136-145); Thyroid Stim Hormone (TSH) 0.69 uIU/mL (0.358-3.74)
[2024-01-03 13:08] LABS: ANTINUCLEAR ANTIBODIES DIRECT Negative (Negative)
[2024-01-03 15:08] LABS: Lyme Scn Total Ab w/Rflx Negative (Negative)
== END | disposition home or self-care (01) ==
LOC: MTLAB 16:52
PROVIDERS: PCP Family Medicine; Referring Provider Family Medicine; Visit Provider Family Medicine
DX: M79.10 Myalgia, unspecified site (principal); M17.10 Unilateral primary osteoarthritis, unspecified knee
CPT/HCPCS: 36415; 72110; 80053; 83735; 84443; 85025; 85652; 86038; 86140; 86618

== ENCOUNTER → 2024-01-22 | Outpatient (CLI) | payer MEDICARE, OTHER, SELFPAY ==
--- NOTE | 2024-01-22 16:09 | MRI_ITS ---
HISTORY: neurogenic claudication. TECHNIQUE: Multiplanar and multisequence MR images of the lumbar spine were obtained without intravenous contrast. 151 images. COMPARISON: XR 01/01/2024. FINDINGS: VERTEBRAE: Vertebral body heights maintained. Mild degenerative endplate changes at multiple levels. No other significant bone marrow signal abnormality. ALIGNMENT: Mild dextroscoliosis. Mild retrolisthesis of L2-3 and anterolisthesis of L4-5 again seen. CONUS: Normal morphology and position of the conus medullaris at L1. INTERVERTEBRAL DISCS: T12-L1: No significant posterior disc protrusion, central canal stenosis, or foraminal narrowing based on the sagittal images. L1-2: Mild disc bulge with facet arthropathy resulting in minimal narrowing of the thecal sac and mild right foraminal narrowing. L2-3: Moderate posterior disc bulge osteophyte complex with facet arthropathy resulting in mild central canal stenosis, bilateral L3 nerve root abutment, moderate left, and mild right foraminal narrowing. L3-4: Mild posterior disc bulge osteophyte complex with facet arthropathy resulting in mild central canal stenosis and moderate bilateral foraminal narrowing with bilateral L3 nerve root abutment/impingement. L4-5: Mild disc bulge and prominent facet arthropathy superimposed on the mild listhesis resulting in severe central canal stenosis, right L5 nerve root impingement, and moderate bilateral foraminal narrowing with right L4 nerve root impingement. L5-S1: Mild posterior disc protrusion with annular fissure and facet arthropathy. No significant central canal stenosis or foraminal narrowing. SOFT TISSUES: Mild posterior subcutaneous edema. MRI/Spine Lumbar (Routine) IMPRESSION: Multilevel degenerative disc disease with severe spinal canal stenosis, nerve root impingement, and foraminal narrowing as above. Electronically Signed: Alla Subramanian MD at 13:16 EDT ,
== END | disposition home or self-care (01) ==
LOC: MRI 15:53
PROVIDERS: PCP Family Medicine; Referring Provider Family Medicine; Visit Provider Family Medicine
DX: R29.818 Other symptoms and signs involving the nervous system (principal)
CPT/HCPCS: 72148

== ENCOUNTER → 2024-04-01 | Outpatient (CLI) | payer MEDICARE, OTHER, SELFPAY ==
[2024-04-01 15:02] LABS: Hematocrit 39.1 % (40-54); Hemoglobin 13.1 g/dL (13.0-16.5); Mean Corp Hgb Conc 33.5 g/dL (32-36); Mean Corpuscular Hgb 30.5 pg (27.0-32.0); Mean Corpuscular Volume 90.9 fL (80-94); Mean Platelet Vol. 12.9 fl (6.2-12.0); Platelet Count 212 K/mm3 (150-450); RBC Distribution Width CV 12.7 % (11.6-14.6); RBC Distribution Width SD 41.6 fl (35.1-43.9); White Blood Count 7.7 K/mm3 (4.4-11.0)
[2024-04-01 15:27] LABS: AST(SGOT) 55 U/L (15-37); Alanine Aminotransfer ALT/SGPT 78 U/L (16-61); Alkaline Phosphatase 90 U/L (45-117); Anion Gap 9 (5-15); BUN 32 mg/dL (7-18); BUN/Creat Ratio 24.8 RATIO (10-20); Calcium,Total 9.5 mg/dL (8.5-10.1); Chloride 106 mmol/L (98-107); Creatinine, Serum 1.29 mg/dL (0.70-1.30); EST Glomerular Filtration Rate 58 mL/min (>60); Est Glom Filt Rate - Afr Amer 70 mL/min (>60); Glucose 114 mg/dL (74-106); Potassium 3.8 mmol/L (3.5-5.1); Sodium Level 139 mmol/L (136-145)
== END | disposition home or self-care (01) ==
PROVIDERS: PCP Family Medicine; Referring Provider Family Medicine; Visit Provider Family Medicine
DX: I12.9 Hypertensive chronic kidney disease with stage 1 through stage 4 chronic kidney disease, or unspecified chronic kidney disease (principal); N18.2 Chronic kidney disease, stage 2 (mild)
CPT/HCPCS: 36415; 80053; 85027

== ENCOUNTER → 2024-10-15 | Outpatient (CLI) | payer MEDICARE, OTHER, SELFPAY ==
[2024-10-15 17:56] LABS: Hemoglobin A1c 5.6 % (3.8-5.6)
[2024-10-15 18:02] LABS: AST(SGOT) 34 U/L (15-37); Alanine Aminotransfer ALT/SGPT 55 U/L (16-61); Albumin, Serum 4.2 g/dL (3.2-5.0); Alkaline Phosphatase 94 U/L (45-117); Anion Gap 6 (5-15); BUN 36 mg/dL (7-18); Calcium,Total 10.1 mg/dL (8.5-10.1); Chloride 106 mmol/L (98-107); Creatinine, Serum 1.24 mg/dL (0.70-1.30); EST Glomerular Filtration Rate 60 mL/min (>60); Est Glom Filt Rate - Afr Amer 73 mL/min (>60); Globulin 4.1 g/dL (2.2-4.2); Glucose 114 mg/dL (74-106); Potassium 4.2 mmol/L (3.5-5.1); Protein, Total 8.3 g/dL (6.4-8.2); Sodium Level 139 mmol/L (136-145)
[2024-10-15 18:41] LABS: Microalbumin,Random Urine 60.3 mg/L (NO RANGE EST.); Microalbumin:Creatinine Ratio 85.5 mg/g CRE (<30 mg/g CRE)
== END | disposition home or self-care (01) ==
LOC: MTLAB 16:54
PROVIDERS: PCP Family Medicine; Referring Provider Family Medicine; Visit Provider Family Medicine
DX: I10 Essential (primary) hypertension (principal); E88.810 Metabolic syndrome
CPT/HCPCS: 36415; 80053; 82043; 82570; 83036

== ENCOUNTER 2025-02-11 06:50 | Day surgery (SDC) | payer MEDICARE, OTHER, SELFPAY ==
[2025-02-11] VITALS (7 sets, daily range): BP systolic 100–174; BP diastolic 8–81; PULSE 64–84; RESP 16–17; TEMP 36.2–36.4; O2SAT 94–97; BMI 34.4
--- NOTE | 2025-02-11 06:52 | PRE.ANES_ITS ---
ASA Classification* ASA Classification ASA Classification: 2 Assessment & Plan Anesthesia* Anesthesia Assessment Anesthesia Assessment: Discussed sedation and/or anesthesia options, risks, benefits, and alternatives with patient/parents/legal guardian/POA. Questions invited. The patient/parents/legal guardian/POA seems to understand and agrees to proceed with anesthesia plan. Reviewed the physical assessment, medical history, allergy history and patient home medications list prior to surgery/procedure/anesthetic and documented any changes. Performed airway and anesthesia risk assessments. Anesthesia Type Anesthesia Type: MAC Anesthesia Focused Assessment* Airway Assessment Mouth opens: >3 cm Mallampati Score: II Focused Labs Anesthesia Preop lab: CBC WBC 7.7 K/mm3 (4.4-11.0) 04/01/24 12:04/01/24 RBC 4.30 M/mm3 (4.6-6.2) L 04/01/24 12:32 04/01/24 Hgb 13.1 g/dL (13.0-16.5) 04/01/24 12:32 04/01/24 Hct 39.1 % (40-54) L 04/01/24 12:32 04/01/24 Plt Count 212 K/mm3 (150-450) 04/01/24 12:32 04/01/24 CHEMISTRY Potassium 4.2 mmol/L (3.5-5.1) 10/15/24 16:56 10/15/24 Sodium 139 mmol/L (136-145) 10/15/24 16:56 10/15/24 Magnesium 2.0 mg/dL (1.6-2.6) 01/01/24 16:55 01/01/24 Phosphorus 2.5 mg/dL (2.5-4.9) 08/27/12 09:11 08/27/12 BUN 36 mg/dL (7-18) H 10/15/24 16:56 10/15/24 Creatinine 1.24 mg/dL (0.70-1.30) 10/15/24 16:56 10/15/24 Glucose 114 mg/dL (74-106) H 10/15/24 16:56 10/15/24 TSH 0.69 uIU/mL (0.358-3.74) 01/01/24 16:55 COAG Pre-Assessment Diagnosis/Proposed Procedure Planned Operative Procedure(s): COLONOSCOPY Anesthesia History 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 When Was Last Pacemaker Check QUESTION #4 FULL TEXT: You/Your Family Experience fever (hyperthermia) with Anesthesia Last Oral Intake Last Oral intake: Last Oral Intake NPO since Meds taken in AM with sips of water? 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 Female No 02/10/25 14:29 HX of Motion Sickness Yes 02/10/25 14:29 HX of N/V After Surgery Yes 02/10/25 14:29 Non-Smoker No 02/10/25 14:29 Duration of Surgery greater No 02/10/25 14:29 than 60 minutes Number of Risk Factors 2 02/10/25 14:29 PONV Score Moderate Risk 02/10/25 14:29 Respiratory Assessment Respiratory Assessment - associate music professor: Respiratory Tract Infection Hx - associate music professor Hx Respiratory Tract Infection No 02/10/25 14:29 STOP Sleep Apnea STOP Sleep Apnea - associate music professor: STOP Sleep Apnea - associate music professor Hx Hypertension Yes: CONTROLLED ON MED 02/10/25 14:29 Hx Sleep Apnea No 02/10/25 14:29 CPAP BIPAP Do you snore loudly (louder No 02/10/25 14:29 than talking or can be heard Do you often feel tired/ No 02/10/25 14:29 fatigued/ sleepy during daytime? Has anyone observed you stop No 02/10/25 14:29 breathing during sleep? STOP Results Negative 02/10/25 14:29 QUESTION #5 FULL TEXT : Do you snore loudly (louder than talking or can be h eard through closed doors)? 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 Specify any problems Hx of Preganancy in last 3 N/A 02/10/25 14:29 Months Nurse Filling Out Transfusion VCHRISTIN 02/10/25 14:29 & Questions: Date: 02/10/25 02/10/25 14:29 Time: 14:30 02/10/25 14:29 Patient unable to answer at this time (ie. 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: /Reproductive Hx- associate music professor Hx Now Gestational Age (in weeks): EDC: Hx Hx Para Hx Section SAB PFSH Medical History Wears glasses Cancer Redness of skin Arthritis High cholesterol Excessive bleeding History of diverticulitis Gastric reflux Non-smoker History of pain when walking History of edema History of irregular heartbeat Fatigue HTN (hypertension) Heart murmur Home Medications ?Medication ?Instructions ?Recorded ?Last Taken ?Type allopurinol 100 mg tablet 100 mg PO DAILY 03/15/19 Unk nown History cholecalciferol (vitamin D3) 25 1,000 unit PO DAILY Unknown History mcg (1,000 unit) tablet cyanocobalamin (vitamin B-12) 1,000 mcg PO DAILY 03/15 Unknown History 1,000 mcg capsule fosinopril 20 mg tablet 20 mg PO BID 03/15/19 Unknow n History gemfibrozil 600 mg tablet 600 mg PO BID 03/15/19 Unkno wn History niacin (inositol niacinate) 500 mg 500 mg PO BID 03/15 Unknown History capsule omeprazole 20 mg capsule,delayed 20 mg PO DAILY Unknown History release amlodipine 5 mg tablet 5 mg PO QDAY 01/28/25 Unknow n History aspirin 325 mg tablet 325 mg PO QDAY 01/28/25 Unkn own History diclofenac sodium 75 mg 75 mg PO DAILY PRN pain 03/19 Unknown History tablet,delayed release diphenhydramine HCl 25 mg tablet 25 mg PO QHS 02/10/25 Unknown History (Dcsnf-S-Tvdc) ipratropium bromide 42 mcg (0.06 2 spray intranasal TI D 02/10/25 Unknown History %) nasal spray tramadol 50 mg tablet 50 mg PO QHS PRN PRN pain Unknown History triamterene 75 1 tab PO DAILY 02/10/25 Unkn own History mg-hydrochlorothiazide 50 mg tablet Allergy/AdvReac Type Severity Reaction Status Date / Time celecoxib (From Celebrex) Allergy Intermediate Rash Verified 02/10/25 14:15 atorvastatin (From Lipitor) AdvReac Other Verified 02/10/25 14:15 Family History Mother Hypertension Brother Hypertension Father Cancer Surgical History Hx of Achilles tendon repair Hx of knee surgery Hx of rotator cuff surgery H/O umbilical hernia repair Social History Smoking Status: Never smoker Review of Systems (Anesthesia) ROS Narrative System reviewed and no additional complaints, except as documented.
[2025-02-11] MEDS: Lactated Ringers 1,000 ML 15 ML IV (07:06)
--- NOTE | 2025-02-11 07:34 | PCM.HP.STD ---
HPI - General General Date of Admission: 02/11/25 Date of Service: 02/11/25 Chief Complaint: colonoscopy HPI Narrative The patient is a 74-year-old male who is being seen today for colonoscopy. He recently had a Cologuard testing performed and this was positive. His last colonoscopy was about 15 years ago. He had no polyps. He has a younger brother with polyps. He himself denies any GI symptoms or problems FORMERLY [facility], [facility] Medical History Wears glasses Cancer Redness of skin Arthritis High cholesterol Excessive bleeding History of diverticulitis Gastric reflux Non-smoker History of pain when walking History of edema History of irregular heartbeat Fatigue HTN (hypertension) Heart murmur Home Medications ?Medication ?Instructions ?Recorded ?Last Taken ?Type allopurinol 100 mg tablet 100 mg PO DAILY 03/15/19 02/10/25 History cholecalciferol (vitamin D3) 25 1,000 unit PO DAILY 03/15/19 02/10/25 History mcg (1,000 unit) tablet cyanocobalamin (vitamin B-12) 1,000 mcg PO DAILY 03/15/19 02/10/25 History 1,000 mcg capsule fosinopril 20 mg tablet 20 mg PO BID 03/15/19 02/10/25 History gemfibrozil 600 mg tablet 600 mg PO BID 03/15/19 02/10/25 History niacin (inositol niacinate) 500 mg 500 mg PO BID 03/15/19 02/10/25 History capsule omeprazole 20 mg capsule,delayed 20 mg PO DAILY 03/15/19 02/10/25 History release amlodipine 5 mg tablet 5 mg PO QDAY 01/28/25 02/10/25 History aspirin 325 mg tablet 325 mg PO QDAY 01/28/25 02/10/25 History diclofenac sodium 75 mg 75 mg PO DAILY PRN pain 01/28/25 02/10/25 History tablet,delayed release diphenhydramine HCl 25 mg tablet 25 mg PO QHS 02/10/25 02/10/25 History (Gsipb-S-Jcmn) ipratropium bromide 42 mcg (0.06 2 spray intranasal TID 02/10/25 02/10/25 History %) nasal spray tramadol 50 mg tablet 50 mg PO QHS PRN PRN pain 02/10/25 Unknown History triamterene 75 1 tab PO DAILY 02/10/25 02/10/25 History mg-hydrochlorothiazide 50 mg tablet meclizine 25 mg chewable tablet 25 mg PO DAILY PRN nausea 02/11/25 Unknown History (Antivert) Allergy/AdvReac Type Severity Reaction Status Date / Time celecoxib (From Celebrex) Allergy Intermediate Rash Verified 02/11/25 07:02 atorvastatin (From Lipitor) AdvReac Other Verified 02/11/25 07:02 Family History Mother Hypertension Brother Hypertension Father Cancer Surgical History Hx of Achilles tendon repair Hx of knee surgery Hx of rotator cuff surgery H/O umbilical hernia repair Social History Smoking Status: Never smoker Vital Signs Vital Signs Vital Signs: 02/11/25 07:04 02/11/25 07:04 Temperature 97.4 F L Temperature Source Temporal Pulse Rate 84 Respiratory Rate 16 Respiratory Pattern Normal Blood Pressure 174/81 H Blood Pressure Mean 112 Blood Pressure Source Monitor Blood Pressure Position Semi-Fowlers Blood Pressure Location Right Arm Pulse Ox 97 Oxygen Delivery Method Room Air Weight Weight: 246 lb 14.684 oz Body Mass Index (BMI) 34.4 Physical Exam Const alert, oriented x3 and no apparent distress Assessment & Plan Assessment/Plan (1) Positive colorectal cancer screening using Cologuard test: PLAN: Plan Patient is a 74-year-old male recently found to be Cologuard positive. I have recommended colonoscopy with possible polypectomy. We discussed the details of the planned procedure including risks benefits and alternatives. He wishes to proceed. This will begin momentarily. Charges/Coding Visit Charges Inpatient E&M: 13583 Init Hosp L2
--- NOTE | 2025-02-11 08:25 | OP.COLON_ITS ---
Patient Name: Rocky Christy Procedure Date: 02/11/2025 7:37 AM Date of : 1950 Age: 74 Procedure: Colonoscopy Indications: Positive Cologuard test Providers: Derrek Rich MD Referring MD: Grant Taylor Medicines: Monitored Anesthesia Care Patient Profile: Refer to note in patient chart for documentation of history and physical. Last Colonoscopy: more than 10 years ago. Complications: No immediate complications. Estimated blood loss: None. Procedure: Pre-Anesthesia Assessment: - Prior to the procedure, a History and Physical was performed, and patient medications and allergies were reviewed. The patient's tolerance of previous anesthesia was also reviewed. The risks and benefits of the procedure and the sedation options and risks were discussed with the patient. All questions were answered, and informed consent was obtained. Prior Anticoagulants: The patient has taken no anticoagulant or antiplatelet agents. ASA Grade Assessment: II - A patient with mild systemic disease. After reviewing the risks and benefits, the patient was deemed in satisfactory condition to undergo the procedure. After I obtained informed consent, the scope was passed under direct vision. Throughout the procedure, the patient's blood pressure, pulse, and oxygen saturations were monitored continuously. The adult colonoscope was introduced through the anus and advanced to the cecum, identified by appendiceal orifice and ileocecal valve. The ileocecal valve, appendiceal orifice, and rectum were photographed. The entire colon was well visualized. The colonoscopy was somewhat difficult due to a tortuous colon. The patient tolerated the procedure well. The quality of the bowel preparation was adequate. Moderate Sedation: See the other procedure note for documentation of moderate sedation with intraservice time. Scope In: 7:54:31 AM Scope Withdrawal Time 0 hours 13 minutes 57 seconds Scope Out: 8:17:30 AM Total Procedure Duration Time 0 hours 22 minutes 59 seconds Findings: The perianal and digital rectal examinations were normal. Multiple small-mouthed diverticula were found in the sigmoid colon. The exam was otherwise without abnormality on direct and retroflexion views. Impression: - Diverticulosis in the sigmoid colon. - The examination was otherwise normal on direct and retroflexion views. - No specimens collected. Recommendation: - Discharge patient to home (ambulatory). - High fiber diet. - Continue present medications. - Repeat colonoscopy in 10 years for screening purposes. - Return to my office PRN. Procedure Code(s): --- Professional --- 48875, Colonoscopy, flexible; diagnostic, including collection of specimen(s) by brushing or washing, when performed (separate procedure) Diagnosis Code(s): --- Professional --- K57.30, Diverticulosis of large intestine without perforation or abscess without bleeding R19.5, Other fecal abnormalities CPT copyright 2021 [employer]. All rights reserved. The codes documented in this report are preliminary and upon slab off mill tender review may be revised to meet current compliance requirements. Derrek Rich MD 02/11/2025 8:24:44 AM This report has been signed electronically. Number of Addenda: 0 Note Initiated On: 02/11/2025 7:37 AM
--- NOTE | 2025-02-11 08:25 | OP.CCLET_ITS ---
02/11/2025 Grant Taylor [address] [place] [address] [place] [address] Re : Colonoscopy procedure for Rocky Christy Dear Dr. Taylor This procedure was performed on Tuesday, February 11, 2025. My impressions and recommendations are as follows: Impressions : - Diverticulosis in the sigmoid colon. - The examination was otherwise normal on direct and retroflexion views. - No specimens collected. Recommendations : - Discharge patient to home (ambulatory). - High fiber diet. - Continue present medications. - Repeat colonoscopy in 10 years for screening purposes. - Return to my office PRN. My findings are described in the full procedure note, which is enclosed. If I can be of further assistance, please feel free to contact me at . Sincerely, Derrek Rich MD 02/11/2025 8:24:44 AM This report has been signed electronically.
--- NOTE | 2025-02-11 08:28 | PCM.POST.ANE ---
Anesthesia: Postop Eval I Current Vital Signs Temperature: 97.1 F Pulse Rate: 71 Blood Pressure: 100/49 Respiratory Rate: 17 Pulse Ox: 97 Oxygen Delivery Method: Room Air Assessment Airway patent: Yes Spontaneous unlabored respirations: Yes Mental status: Awake and Calm nausea: No Vomiting: No Anesthesia Complication: No Fluid Hydration Crystalloid volume administer (ml): 800 Total IV fluid infused: 800 Progress Note Anesthesia document: Postop Eval 1 completed: Yes
--- NOTE | 2025-02-11 09:12 | PCM.POSTANE2 ---
Anesthesia Postop Eval I Sum Postop Eval Completion status Anesthesia document: Postop Eval 1 completed: Yes Anesthesia Postop Eval I Summary Anesthesia Postop Eval I Summary: Anesthesia Postop Eval I: Assessment Summary Airway patent Yes 02/11/25 08:29 [email or web address] Spontaneous unlabored Yes 02/11/25 08:29 [email or web address] respirations Mental status Awake,Calm 02/11/25 08:29 [email or web address] nausea No 02/11/25 08:29 [email or web address] Vomiting No 02/11/25 08:29 [email or web address] Anesthesia Postop Eval I: Fluid Summary Crystalloid volume administer 800 02/11/25 08:29 [email or web address] (ml) Colloids volume administered ( ml) Blood Product volume administered (ml) Total IV fluid infused 800 02/11/25 08:29 [email or web address] Anesthesia Postop Eval I: Summary Notes Anesthesia Complication No 02/11/25 08:29 [email or web address] Anesthesia Complication Comment: Post-operative progress note Anesthesia: Postop Eval II Evaluation Mental status: Awake Pain Level: 0 nausea: No Vomiting: No
== END 2025-02-11 09:05 | disposition home or self-care (01) ==
LOC: EN 06:50 → AC 06:52
PROVIDERS: PCP Family Medicine; Referring Provider Family Medicine; Visit Provider Surgery
PROC: 0DJD8ZZ Inspection of Lower Intestinal Tract, Via Natural or Artificial Opening Endoscopic (ICD-10-PCS; CPT 45378; principal; 2025-02-11 07:55)
DX: K57.30 Diverticulosis of large intestine without perforation or abscess without bleeding (principal); I10 Essential (primary) hypertension; E78.00 Pure hypercholesterolemia, unspecified; K21.9 Gastro-esophageal reflux disease without esophagitis; Z79.899 Other long term (current) drug therapy; Z79.82 Long term (current) use of aspirin; R19.5 Other fecal abnormalities
CPT/HCPCS: 45378; J2405

== ENCOUNTER 2025-04-03 17:30 | Outpatient (RCR) | payer MEDICARE, OTHER, SELFPAY ==
--- NOTE | 2025-03-10 19:45 | HP.PTEVAL_ITS ---
Patient's Visit Information Visit Information Visit Information: RONI PINTO is a 74 year old M referred to Physical Therapy by Dr. Grant Arita MD with a diagnosis of SPINALS [place] WITH NEUROGENIC CLAUDICATION. Date of Evaluation: 03/10/25 Physical Therapist: Leandro Crow, PT, Cert MDT, OCS Visit Plan Frequency: 2x /Week Duration: 4 Weeks Plan: PT INTERVENTIONS LUMBAR ROM ,LE FLEXABILITY , DLS ,POSTURAL EX'S , AND ACTIVITY MODIFICATION Subjective Subjective: This 74 y/o male presents to physical therapy with lumbar stenosis . Patient has had symptoms left lower leg /calf left worse in left > right for ~ [address] Taylor did MRI stenosis ,protruding discs ,x-rays showed Marked disc space narrowing throughout most of the lower thoracic and lumbar levels. Patient seen Orthopedic DR recommended PT , pain injection pain management at [facility] ,March 27. Tramadol. Patient aggravating sitting extended , walking ,standing 10-15 mins.Difficulty getting up from chair. Alleviating lifting ,resting. Coughing/sneezing -. Bowel/bladder-. Sleeping at night. Denies paresthesia/tingling-.No exercises. No other tx . No recent trauma.Seen DR Major discussed about surgery if gets worse SOCAIL: VOCATION: [employer] retired [employer]ES: hunting Pain Bilateral Lower Extremity: Pain Intensity (Out of 10): 7 Comment: worse with standing/walking Objective Objective: POSTURE: mild forward posture PALAPTION: unremarkable GAIT: reciprocal pattern NEURO: denies paresthesia/tingling ,reflexes L3-4,L4-5,L5- S1 1/3 MMT: quads/hams 4/5 ,hip flexion 4/5 ,ankle 4/5 LUMBAR FLEXION : mod loss ,extension mod loss ,side glides mod loss FLEXABILITY: hamstrings mod tight Special Tests L/S Slump test left side: Negative L/S Slump test right side: Negative L/S Left Straight Leg Raise: Negative L/S Right Straight Leg Raise: Negative Lumbar Standing: Flexion - Mechanical Response: No effect Lumbar Standing: Flexion - Symptoms During Testing: No effect Lumbar Standing: Flexion - Symptoms After Testing: No effect Lumbar Standing: Extension - Mechanical Response: No effect Lumbar Standing: Extension - Symptoms During Testing: No effect Lumbar Standing: Extension - Symptoms After Testing: No effect Lumbar Standing: Right Side Glides - Mechanical Response: No effect Lumbar Standing: Right Side Gamaliel - Symptoms During Testing: No effect Lumbar Standing: Right Side Gamaliel - Symptoms After Testing: No effect Lumbar Standing: Left Side Gamaliel - Mechanical Response: No effect Lumbar Standing: Left Side Gamaliel - Symptoms During Testing: No effect Lumbar Standing: Left Side Gamaliel - Symptoms After Testing: No effect Balance/Special Test Scores Oswestry Low Back Score: 18 Goals Goal 1:: Patient to be I with HEP for back Goal Time Frame: 4-6 Weeks Goal 2:: Patient to improve lumbar ROM for function of recovery to put on shoes . Goal Time Frame: 4-6 Weeks Goal 3:: Patient to improve back oswestry score to improve QOL Goal Time Frame: 4-6 Weeks Goal 4:: Patient to ability to walk and stand for > 20 mins to improve QOL and function Goal Time Frame: 4-6 Weeks Rehabilitation Potential Physical Therapy Diagnosis: This patient has lumbar stenosis with pain in legs with pain worse with positioning walking/standing thus benefit from skilled PT Rehabilitation Potential: Good Anticipated Interventions Patient/Client Instruction: Educate patient on: Condition and Plan of Care For the Purpose of:: To decrease pain, To increase ROM, To improve muscle performance and motor function, To improve ability to perform ADL's, To increase tolerance to activity/condition/position, To improve ability of physical actions for home/community/work/leisure, To improve gait and locomotor functions, To improve health of tissue, To decrease soft tissue restriction, To increase flexibility/ROM, To improve balance, To reduce risk of recurrence and To improve tolerance to ADL's Therapeutic Exercise to Include: Strength training, Postural training, Flexibilty training, Active ROM and Dynamic Lumbar Stabilization For the Purpose of:: To decrease pain, To increase ROM, To improve muscle performance and motor function, To increase tolerance to activity/condition/position, To improve ability of physical actions for home/community/work/leisure, To improve health of tissue, To decrease soft tissue restriction, To increase flexibility/ROM and To improve tolerance to ADL's Text: Thank you for the opportunity to evaluate your patient. For Medicare and Medicare HMO plans, please review the plan of care and approve it. It will need to be FAXED BACK to us at [phone] for Medicare purposes. For Medicare only, by signing this I certify the plan of care. Please let me know if there are questions or concerns regarding this plan of care. Physician Signature: Date:
--- NOTE | 2025-04-03 17:38 | HP.PTEVAL ---
Patient's Visit Information Visit Information Visit Information: RONI PINTO is a 74 year old M referred to Physical Therapy by Dr. Grant Arita MD with a diagnosis of SPINALS STENSOIS REGION WITH NEUROGENIC CLAUDICATION. Date of Evaluation: 03/10/25 Physical Therapist: Leandro Crow, PT, Cert MDT, OCS Visit Plan Frequency: 2x /Week Duration: 4 Weeks Plan: PT INTERVENTIONS LUMBAR ROM ,LE FLEXABILITY , DLS ,POSTURAL EX'S , AND ACTIVITY MODIFICATION Subjective Subjective: This 74 y/o male presents to physical therapy with lumbar stenosis . Patient has had symptoms left lower leg /calf left worse in left > right for ~ [address]. [address] Taylor did MRI stenosis ,protruding discs ,x-rays showed Marked disc space narrowing throughout most of the lower thoracic and lumbar levels. Patient seen Orthopedic DR recommended PT , pain injection pain management at [facility] ,March 27. Tramadol. Patient aggravating sitting extended , walking ,standing 10-15 mins.Difficulty getting up from chair. Alleviating lifting ,resting. Coughing/sneezing -. Bowel/bladder-. Sleeping at night. Denies paresthesia/tingling-.No exercises. No other tx . No recent trauma.Seen DR Major discussed about surgery if gets worse SOCAIL: VOCATION: [employer] retired [employer]: hunting Pain Bilateral Lower Extremity: Pain Intensity (Out of 10): 0 Comment: L more than the R Objective Objective: POSTURE: mild forward posture PALAPTION: unremarkable GAIT: reciprocal pattern NEURO: denies paresthesia/tingling ,reflexes L3-4,L4-5,L5- S1 1/3 MMT: quads/hams 4/5 ,hip flexion 4/5 ,ankle 4/5 LUMBAR FLEXION : mod loss ,extension mod loss ,side glides mod loss FLEXABILITY: hamstrings mod tight Special Tests L/S Slump test left side: Negative L/S Slump test right side: Negative L/S Left Straight Leg Raise: Negative L/S Right Straight Leg Raise: Negative Lumbar Standing: Flexion - Mechanical Response: No effect Lumbar Standing: Flexion - Symptoms During Testing: No effect Lumbar Standing: Flexion - Symptoms After Testing: No effect Lumbar Standing: Extension - Mechanical Response: No effect Lumbar Standing: Extension - Symptoms During Testing: No effect Lumbar Standing: Extension - Symptoms After Testing: No effect Lumbar Standing: Right Side Glides - Mechanical Response: No effect Lumbar Standing: Right Side [place] - Symptoms During Testing: No effect Lumbar Standing: Right Side [place] - Symptoms After Testing: No effect Lumbar Standing: Left Side [place] - Mechanical Response: No effect Lumbar Standing: Left Side [place] - Symptoms During Testing: No effect Lumbar Standing: Left Side [place] - Symptoms After Testing: No effect Balance/Special Test Scores Oswestry Low Back Score: 18 Goals Goal 1:: Patient to be I with HEP for back Goal Time Frame: 4-6 Weeks Goal 2:: Patient to improve lumbar ROM for function of recovery to put on shoes . Goal Time Frame: 4-6 Weeks Goal 3:: Patient to improve back oswestry score 3-5 points to improve QOL Goal Time Frame: 4-6 Weeks Goal 4:: Patient to ability to walk and stand for > 20 mins to improve QOL and function Goal Time Frame: 4-6 Weeks Goal 5:: Patient to demonstrate 40 % improvement with improve function with walking and QOL Goal Time Frame: 4-6 Weeks Rehabilitation Potential Physical Therapy Diagnosis: This patient has lumbar stenosis with pain in legs with pain worse with positioning and walking/standing thus benefit from skilled PT Rehabilitation Potential: Good Anticipated Interventions Patient/Client Instruction: Educate patient on: Condition and Plan of Care For the Purpose of:: To decrease pain, To increase ROM, To improve muscle performance and motor function, To improve ability to perform ADL's, To increase tolerance to activity/condition/position, To improve ability of physical actions for home/community/work/leisure, To improve gait and locomotor functions, To improve health of tissue, To decrease soft tissue restriction, To increase flexibility/ROM, To improve balance, To reduce risk of recurrence and To improve tolerance to ADL's Therapeutic Exercise to Include: Strength training, Postural training, Flexibilty training, Active ROM and Dynamic Lumbar Stabilization For the Purpose of:: To decrease pain, To increase ROM, To improve muscle performance and motor function, To increase tolerance to activity/condition/position, To improve ability of physical actions for home/community/work/leisure, To improve health of tissue, To decrease soft tissue restriction, To increase flexibility/ROM and To improve tolerance to ADL's Text: Thank you for the opportunity to evaluate your patient. For Medicare and Medicare HMO plans, please review the plan of care and approve it. It will need to be FAXED BACK to us at [phone] for Medicare purposes. For Medicare only, by signing this I certify the plan of care. Please let me know if there are questions or concerns regarding this plan of care. Physician Signature: Date:
--- NOTE | 2025-04-03 17:55 | HP.PTREVAL_ITS ---
Re-Evaluation Intro: Dr. Grant Arita MD, It has been my pleasure to treat RONI PINTO over the last 5 visits for SPINALS STENSOIS REGION WITH NEUROGENIC CLAUDICATION. Please see the progress note below for an update on the physical therapy plan of care! Subjective Subjective: Seen DR DICKINSON in 3 months March injection epidural injection which has helped leg pain Inactivity increase ache in legs Walking makes back worse Objective Objective/Function: No laying flat POSTURE: mild forward posture PALAPTION: unremarkable GAIT: reciprocal pattern NEURO: denies paresthesia/tingling ,reflexes L3-4,L4-5,L5- S1 1/ MMT: quads/hams 4/5 ,hip flexion 4/5 ,ankle 4/5 LUMBAR FLEXION : min loss ,extension min loss ,side glides min loss FLEXABILITY: hamstrings mod tight Plan Plan Plan: PT INTERVENTIONS LUMBAR ROM ,LE FLEXABILITY , DLS ,POSTURAL EX'S , AND ACTIVITY MODIFICATION Balance/Gait/Functional tests Balance/Special Test Scores Oswestry Low Back Score: 18 Goals Goals Goal 1:: Patient to be I with HEP for back Goal Time Frame: 4-6 Weeks Goal Progress: Progressing Goal 2:: Patient to improve lumbar ROM for function of recovery to put on shoes . Goal Time Frame: 4-6 Weeks Goal Progress: Progressing Goal 3:: Patient to improve back oswestry score 3-5 points to improve QOL Goal Time Frame: 4-6 Weeks Goal 4:: Patient to ability to walk and stand for > 20 mins to improve QOL and function Goal Time Frame: 4-6 Weeks Goal Progress: Progressing Goal 5:: Patient to demonstrate 40 % improvement with improve function with walking and QOL Goal Time Frame: 4-6 Weeks Anticipated Interventions Anticipated Interventions Patient/Client Instruction: Educate patient on: Condition and Plan of Care For the Purpose of:: To decrease pain, To increase ROM, To improve muscle per formance and motor function, To improve ability to perform ADL's, To increase tolerance to activity/condition/position, To improve ability of physical actions for home/community/work/leisure, To improve gait and locomotor functions, To improve health of tissue, To decrease soft tissue restriction, To increase flexibility/ROM, To improve balance, To reduce risk of recurrence and To improve tolerance to ADL's Therapeutic Exercise to Include: Strength training, Postural training, Flexibilty training, Active ROM and Dynamic Lumbar Stabilization For the Purpose of:: To decrease pain, To increase ROM, To improve muscle performance and motor function, To increase tolerance to activity/condition/position, To improve ability of physical actions for ho me/community/work/leisure, To improve health of tissue, To decrease soft tissue restriction, To increase flexibility/ROM and To improve tolerance to ADL's Re-Evaluation Ending Re-evaluation ending: Please do not hesitate to contact me at [phone] by phone or if you have questions or concerns regarding this new plan of care! Sincerely, Leandro Crow, PT, Cert MDT, OCS
== END 2025-04-03 19:00 | disposition home or self-care (01) ==
LOC: PT 17:30
PROVIDERS: PCP Family Medicine; Referring Provider Orthopaedic Surgery Orthopaedic Surgery of the Spine; Visit Provider Orthopaedic Surgery Orthopaedic Surgery of the Spine
DX: M48.062 Spinal stenosis, lumbar region with neurogenic claudication (principal)
CPT/HCPCS: 97110; 97162; 97530